=== PATIENT | male | born 1990 | race Caucasian/White ===

== ENCOUNTER 2018-03-07 16:45 | Emergency (ER) | payer OTHER ==
[~2018-03-07] VITALS: Ht 182.9 cm; Wt 111.4 kg
[2018-03-07 16:54] VITALS: BP 136/78
[2018-03-07] MEDS ORDERED: BACITRACIN OINT 500 UNITS/GM PKT TP ONE (19:46)
[2018-03-07 20:20] VITALS: BP 136/78
== END 2018-03-07 20:06 | disposition home or self-care (01) ==
LOC: MED 16:45
DX: S62.512A Displaced fracture of proximal phalanx of left thumb, initial encounter for closed fracture (principal); V19.9XXA Pedal cyclist (driver) (passenger) injured in unspecified traffic accident, initial encounter; Y93.89 Activity, other specified; Y92.488 Other paved roadways as the place of occurrence of the external cause; Y99.8 Other external cause status
CPT/HCPCS: 73140; 90471; 90715; 99284

== ENCOUNTER 2019-08-31 11:00 | Emergency (ER) | payer OTHER ==
[~2019-08-31] VITALS: Ht 182.9 cm; Wt 109.3 kg
[2019-08-31 11:05] VITALS: BP 125/88
--- NOTE | 2019-08-31 12:00 | NUR ---
Patient ambulated to bed 6 with family. RN evaluating patient at bedside.
[2019-08-31 12:26] VITALS: BP 113/77
--- NOTE | 2019-08-31 12:26 | NUR ---
Patient discharged with v/s stable. Written and verbal after care instructions given and explained. Patient alert, oriented and verbalized understanding of instructions. Ambulatory with steady gait. All questions addressed prior to discharge. ID band removed. Patient advised to follow up with PMD. Rx of bactrim and keflex given. Patient educated on indication of medication including possible reaction and side effects. Opportunity to ask questions provided and answered.
--- NOTE | 2019-08-31 12:38 | NUR ---
Patient discharged with v/s stable. Written and verbal after care instructions given and explained. Patient verbalized understanding. Ambulatory with steady gait. All questions addressed prior to discharge. Advised to follow up with PMD.
== END 2019-08-31 12:26 | disposition home or self-care (01) ==
LOC: MED 11:00
DX: L03.116 Cellulitis of left lower limb (principal)
CPT/HCPCS: 99283